=== PATIENT | female | born 1950 ===

== ENCOUNTER → 2018-04-20 18:50 | Outpatient (REF) | payer MEDICARE, SELFPAY ==
[2018-04-20 19:11] LABS: Body Fluid Red Blood Cells 1307 /uL; Body Fluid Tot Nucleated Cells 6932 /uL
[2018-04-20 19:15] LABS: Body Fluid Appearance SLIGHTLY CLOUDY; Body Fluid Clotted? NO CLOTS PRESENT; Body Fluid Color YELLOW
[2018-04-20 19:37] LABS: Eosinophils Body Fluid 0 %; Mononuclear WBC Body Fluid 52 %; Polynuclear WBC Body Fluid 48 %
[2018-04-20 19:38] LABS: Other Cells Body Fluid 0 %
== END ==
LOC: LAB 18:50
PROVIDERS: Visit Provider Internal Medicine Rheumatology
DX: M25.462 Effusion, left knee (principal)
CPT/HCPCS: 87070; 87075; 87205; 89051; 89060